=== PATIENT | male | born 1950 | race Caucasian/White ===

== ENCOUNTER 2025-04-13 13:16 | Inpatient (IN) | payer OTHER ==
[~2025-04-13] VITALS: Ht 177.8 cm; Wt 97.8 kg
[2025-04-13 13:53] LABS: PLATELET COUNT (AUTO) 130 K/uL (150-450); RED BLOOD CELL COUNT(AUTO) 3.52 MIL/uL (4.50-5.90); RED CELL DISTRIBUTION WIDTH 14.5 % (11.5-14.5); WHITE BLOOD COUNT (AUTO) 3.4 K/uL (4.5-11.0)
[2025-04-13] MEDS ORDERED: SODIUM CHLORIDE 0.9% 100 ML ONE (13:58)
[2025-04-13] MEDS ORDERED: IOHEXOL 350 MG/ML 100 ML VIAL ONE (13:58)
[2025-04-13 14:01] LABS: CALCIUM, TOTAL 8.5 mg/dL (8.8-10.5); CREATININE 0.80 mg/dL (0.60-1.30); GLOMERULAR FILTR. RATE CALC > 60 mL/min (>60); GLUCOSE,RANDOM 242 mg/dL (70-110); SODIUM SERUM 143 mmol/L (136-145); UREA NITROGEN, BLOOD 16 mg/dL (7-18)
[2025-04-13 14:07] LABS: ASPARTATE AMINOTRANSFERASE 32 U/L (15-37); CHOL/HDL RATIO 1.7 (4.2-7.3); LDL CHOL (CALC.) 37 mg/dL (0-130); TOTAL PROTEIN, SERUM 6.6 g/dL (6.4-8.2)
[2025-04-13 14:11] LABS: TROPONIN I-HIGH SENSITIVITY 15 ng/L (<76)
[2025-04-13] MEDS ORDERED: LABETALOL HCL 5 MG/ML 20 ML VIAL IVP PRN (15:15)
[2025-04-13] MEDS ORDERED: ACETAMINOPHEN 325 MG TABLET PO PRN (15:15)
[2025-04-13] MEDS ORDERED: ONDANSETRON HCL 4 MG/2 ML VIAL IVP PRN (15:15)
[2025-04-13] MEDS: ASPIRIN 81 MG CHEWABLE TABLET PO ONE (15:50)
[2025-04-13] MEDS: HEPARIN SODIUM,PORCINE 5,000 UNITS/ML VIAL SQ SCH (15:51)
[2025-04-13 17:21] LABS: COVID AG,FIA SOURCE NASAL SWAB
[2025-04-13 17:43] LABS: SARS-COV2 (COVID) ANTIGEN,FIA Negative (Negative)
[2025-04-13 18:25] VITALS: BP 124/60; PULSE 68; RESP 19; TEMP 98.1; O2SAT 98
[2025-04-13 20:15] LABS: TROPONIN I-HIGH SENSITIVITY 18 ng/L (<76)
[2025-04-13 20:44] VITALS: BP 123/59; PULSE 60; RESP 19; TEMP 97.7; O2SAT 99
[2025-04-13] MEDS ORDERED: ATORVASTATIN CALCIUM 40 MG TABLET PO SCH (21:00)
[2025-04-13] MEDS: DOCUSATE SODIUM 100 MG CAPSULE PO SCH (21:00)
[2025-04-14 00:07] VITALS: BP 118/66; PULSE 60; RESP 17; TEMP 97.3; O2SAT 100
[2025-04-14] MEDS: LORazepam 2 MG/ML VIAL IVP ONE ×2 (05:49→12:00)
[2025-04-14] MEDS: LevETIRAcetam 1,000 MG in DEXTROSE 5%-WATER 100 ML IV ONE (05:50)
[2025-04-14 06:30] LABS: PLATELET COUNT (AUTO) 141 K/uL (150-450); RED BLOOD CELL COUNT(AUTO) 3.67 MIL/uL (4.50-5.90); RED CELL DISTRIBUTION WIDTH 14.5 % (11.5-14.5); WHITE BLOOD COUNT (AUTO) 4.0 K/uL (4.5-11.0)
[2025-04-14 06:34] LABS: CALCIUM, TOTAL 8.9 mg/dL (8.8-10.5); CREATININE 0.83 mg/dL (0.60-1.30); GLOMERULAR FILTR. RATE CALC > 60 mL/min (>60); GLUCOSE,RANDOM 154 mg/dL (70-110); SODIUM SERUM 144 mmol/L (136-145); UREA NITROGEN, BLOOD 14 mg/dL (7-18)
[2025-04-14 06:43] LABS: TROPONIN I-HIGH SENSITIVITY 17 ng/L (<76)
[2025-04-14 07:05] VITALS: BP 101/50; PULSE 59; RESP 18; TEMP 97.6; O2SAT 98
[2025-04-14] MEDS: ASPIRIN 81 MG CHEWABLE TABLET PO SCH (09:00)
[2025-04-14] MEDS: CLOPIDOGREL BISULFATE 75 MG TABLET PO SCH (09:00)
[2025-04-14 11:55] VITALS: BP 132/90; PULSE 68; RESP 18; TEMP 98.4; O2SAT 98
[2025-04-14 15:50] VITALS: BP 129/63; PULSE 65; RESP 18; TEMP 98.1; O2SAT 97
[2025-04-14 20:10] VITALS: BP 122/58; PULSE 60; RESP 18; TEMP 97.5; O2SAT 100
[2025-04-14] MEDS ORDERED: DEXTROSE 50%-WATER 25 GM/50 ML SYRINGE IVP PRN (21:30)
[2025-04-15 00:30] VITALS: BP 138/53; PULSE 60; RESP 18; TEMP 98.1; O2SAT 97
[2025-04-15 05:11] VITALS: BP 113/75; PULSE 73; RESP 16; TEMP 97.5; O2SAT 100
[2025-04-15 06:02] LABS: PLATELET COUNT (AUTO) 131 K/uL (150-450); RED BLOOD CELL COUNT(AUTO) 3.94 MIL/uL (4.50-5.90); RED CELL DISTRIBUTION WIDTH 15.0 % (11.5-14.5)
[2025-04-15 06:20] LABS: CALCIUM, TOTAL 8.9 mg/dL (8.8-10.5); CREATININE 0.62 mg/dL (0.60-1.30); GLOMERULAR FILTR. RATE CALC > 60 mL/min (>60); GLUCOSE,RANDOM 121 mg/dL (70-110); SODIUM SERUM 143 mmol/L (136-145); UREA NITROGEN, BLOOD 11 mg/dL (7-18)
[2025-04-15 06:21] LABS: GLUCOMETER DEV NAME(LOC) 5S.1E; GLUCOSE,POINT OF CARE 118 MG/DL (70-110)
[2025-04-15 07:38] LABS: WHITE BLOOD COUNT (AUTO) 2.9 K/uL (4.5-11.0)
[2025-04-15 07:41] LABS: RBC MORPHOLOGY COMMENT ABNORMAL RBC MORPH
[2025-04-15 08:15] VITALS: BP 126/66; PULSE 61; RESP 19; TEMP 97.9; O2SAT 99
[2025-04-15 11:29] VITALS: BP 123/72; PULSE 61; RESP 17; TEMP 97.5; O2SAT 98
[2025-04-15 12:45] LABS: GLUCOMETER DEV NAME(LOC) 5S.1E; GLUCOSE,POINT OF CARE 128 MG/DL (70-110)
[2025-04-15 15:47] VITALS: BP 124/76; PULSE 74; RESP 19; TEMP 97.9; O2SAT 100
[2025-04-15] MEDS: INSULIN LISPRO 100 UNITS/ML SQ PRN (17:50)
[2025-04-15 17:56] LABS: GLUCOMETER DEV NAME(LOC) 5S.1E; GLUCOSE,POINT OF CARE 174 MG/DL (70-110)
[2025-04-15 19:49] VITALS: BP 117/61; PULSE 62; RESP 18; TEMP 98.1; O2SAT 98
[2025-04-15 23:36] LABS: GLUCOMETER DEV NAME(LOC) 5S.1E; GLUCOSE,POINT OF CARE 242 MG/DL (70-110)
[2025-04-16 00:19] VITALS: BP 117/52; PULSE 60; RESP 18; TEMP 97.7; O2SAT 98
[2025-04-16 04:00] VITALS: BP 117/58; PULSE 70; RESP 18; TEMP 98.3; O2SAT 100
[2025-04-16 06:51] LABS: GLUCOMETER DEV NAME(LOC) 5S.1E; GLUCOSE,POINT OF CARE 175 MG/DL (70-110)
[2025-04-16 08:30] VITALS: BP 108/62; PULSE 64; RESP 18; TEMP 97.5; O2SAT 98
[2025-04-16] MEDS ORDERED: HYDR25TA83 PO (11:43)
[2025-04-16] MEDS ORDERED: ASPI-1450 PO (11:43)
[2025-04-16] MEDS ORDERED: CLOP75TA83 PO (11:43)
[2025-04-16 11:54] VITALS: BP 120/55; PULSE 61; RESP 17; TEMP 98.1; O2SAT 98
[2025-04-16 12:05] LABS: GLUCOMETER DEV NAME(LOC) 5S.1E; GLUCOSE,POINT OF CARE 177 MG/DL (70-110)
== END 2025-04-16 15:00 | disposition home or self-care (01) | DRG 65 ==
LOC: EDBD 13:16 → EMS 13:16 → EDH 15:02 → 5S 18:45
PROVIDERS: ADMIT Internal Medicine; ATTEND Internal Medicine
DX: I63.9 Cerebral infarction, unspecified (principal); F03.94 Unspecified dementia, unspecified severity, with anxiety; G93.40 Encephalopathy, unspecified; D69.6 Thrombocytopenia, unspecified; I25.119 Atherosclerotic heart disease of native coronary artery with unspecified angina pectoris; E11.9 Type 2 diabetes mellitus without complications; D72.819 Decreased white blood cell count, unspecified; Z20.822 Contact with and (suspected) exposure to COVID-19; I11.0 Hypertensive heart disease with heart failure; I50.9 Heart failure, unspecified; R53.81 Other malaise; G43.909 Migraine, unspecified, not intractable, without status migrainosus; R56.9 Unspecified convulsions; I70.0 Atherosclerosis of aorta; E78.00 Pure hypercholesterolemia, unspecified; I48.91 Unspecified atrial fibrillation; F31.9 Bipolar disorder, unspecified; Q98.4 Klinefelter syndrome, unspecified; Z88.2 Allergy status to sulfonamides; Z88.8 Allergy status to other drugs, medicaments and biological substances; Z88.1 Allergy status to other antibiotic agents
CPT/HCPCS: 36569; 70450; 70496; 70498; 71045; 76937; 80048; 80053; 80061; 82948; 82962; 83036; 83735; 84484; 85025; 85610; 92526; 92610; 93005; 93306; 93880; 95816; 97110; 97116; 97163; 97166; 97530; 97535; 99285; J0712; J1644; J2060; J3490; J7050; J7060; 36415-L1; 36415-TC